=== PATIENT | male | born 1975 | race African-American/Black ===

== ENCOUNTER 2018-11-27 19:09 | Inpatient (IN) ==
[2018-11-27] MEDS ORDERED: ONDANSETRON 4 MG/2 ML VIAL IV ONE (19:51)
[2018-11-27] MEDS ORDERED: MORPHINE 4 MG/1 ML VIAL IV ONE (19:51)
[2018-11-27] MEDS ORDERED: LABETALOL 20 MG/4 ML SYRINGE IV STA ×3 (19:52→22:47)
[2018-11-27 19:57] LABS: Basophils % 0.2 % (0.0-0.8); Eosinophils # 0.2 10*3/uL (0.0-0.87); Eosinophils % 2.4 % (0.00-10.9); Hematocrit 47.8 VOL% (42.0-52.0); Hemoglobin 14.9 GM/DL (14.0-18.0); Immature Granulocytes % 0.4 %; Immature Granulocytes Absolute 0.04 #; Lymphocytes # 2.1 10*3/uL (1.4-4.0); Lymphocytes % 21.1 % (21.2-54.2); Mean Corpuscular HGB Conc 31.2 GM/DL (32-36); Mean Corpuscular Volume 89.5 FL (87-102); Mean Platelet Volume 10.6 FL (9.6-12.0); Monocytes % 4.7 % (1.7-12.7); Neutrophils % 71.2 % (38.7-73.9); Platelet Count 302 T/CUMM (130-400); Red Blood Count 5.34 MC/CUMM (3.8-5.5); Red Cell Distribution Width 14.7 % (9.3-17.3); White Blood Count 9.9 T/CUMM (4-12)
[2018-11-27] MEDS ORDERED: LABETALOL 100 MG/20 ML VIAL IV ONE (20:04)
[2018-11-27 20:16] LABS: PT Patient Result 10.4 SECS
[2018-11-27 20:21] LABS: Albumin 3.8 G/DL (3.4-5.0); Bilirubin,Total 0.5 MG/DL (0.2-1.0); Calcium 8.6 MG/DL (8.5-10.1); Osmolality,Calculated 276.4 MOS/KG (273-304); Total Protein 7.6 G/DL (6.4-8.3)
[2018-11-27 21:04] LABS: Apearance,Urine CLEAR (Clear); Bilirubin,Urine Negative (Negative); Blood, Urine Small mg/dL (Negative); Glucose,Urine (UA) Negative (Negative); Ketones,Urine Negative (Negative); Nitrite,Urine Negative (Negative); Protein,Urine 30 MG/DL; RBC,Urine 4 /HPF (0-4); Urine Color Yellow (Yellow); Urine Specific Gravity 1.012 (1.001-1.035); Urine Urobilinogen < 2.0 EU/DL (0.2-1.0); WBC,Urine <1 /HPF (0-6)
[2018-11-27] MEDS ORDERED: ceFAZolin 2,000 MG in PREMIX 1 EACH IV ONE (22:38)
[2018-11-27] MEDS ORDERED: LIDOCAINE 1% 20 ML VIAL ONE (22:38)
[2018-11-27] MEDS ORDERED: BUPIVACAINE MPF 0.25% /EPI 30 ML VIAL ONE (22:38)
[2018-11-27] MEDS ORDERED: HYDROmorphone 2 MG/1 ML VIAL IV PRN (23:04)
[2018-11-27] MEDS ORDERED: ONDANSETRON 4 MG/2 ML VIAL IV PRN (23:04)
[2018-11-27] MEDS ORDERED: MEPERIDINE 25 MG/1 ML VIAL IV PRN (23:04)
[2018-11-27] MEDS ORDERED: PROMETHAZINE INJ 25 MG in SODIUM CHLORIDE 0.9% 50 ML IV PRN (23:04)
[2018-11-27] MEDS ORDERED: ceFAZolin 1,000 MG VIAL ONE (23:07)
[2018-11-28] MEDS ORDERED: SUGAMMADEX 200 MG/2 ML VIAL IV ONE (00:45)
[2018-11-28] MEDS ORDERED: ONDANSETRON 4 MG/2 ML VIAL IV PRN (00:48)
[2018-11-28] MEDS ORDERED: MORPHINE 4 MG/1 ML VIAL IV PRN (00:48)
[2018-11-28] MEDS ORDERED: ALBUTEROL/IPRATROPIUM 3 ML NEB RESP TX ONE (00:58)
[2018-11-28] MEDS ORDERED: hydrALAZINE 20 MG/1 ML VIAL IV ONE (01:15)
[2018-11-28] MEDS ORDERED: MIDAZOLAM 2 MG/2 ML VIAL ONE (01:19)
[2018-11-28] MEDS ORDERED: SEVOFLURANE 1 UNIT/15 MINUTE INH ONE (01:19)
[2018-11-28] MEDS ORDERED: PROPOFOL 200 MG/20 ML VIAL IV ONE (01:19)
[2018-11-28] MEDS ORDERED: SUCCINYLCHOLINE 200 MG/10 ML VIAL ONE (01:20)
[2018-11-28] MEDS ORDERED: ROCURONIUM 100 MG/10 ML VIAL IV ONE (01:20)
[2018-11-28] MEDS ORDERED: PHENYLEPHRINE 1 MG/10 ML SYRINGE IV ONE (01:20)
[2018-11-28] MEDS ORDERED: LACTATED RINGERS 2,000 ML IV ONE (01:20)
[2018-11-28] MEDS ORDERED: fentaNYL 100 MCG/2 ML VIAL ONE (01:20)
[2018-11-28] MEDS ORDERED: ACETAMINOPHEN 1,000 MG/100 ML VIAL IV ONE (01:20)
[2018-11-28] MEDS ORDERED: ONDANSETRON 4 MG/2 ML VIAL ONE (01:20)
[2018-11-28] MEDS ORDERED: hydrALAZINE 20 MG/1 ML VIAL ONE (01:22)
[2018-11-28 04:40] LABS: Basophils % 0.1 % (0.0-0.8); Eosinophils # 0.1 10*3/uL (0.0-0.87); Eosinophils % 0.3 % (0.00-10.9); Hematocrit 44.3 VOL% (42.0-52.0); Hemoglobin 14.1 GM/DL (14.0-18.0); Immature Granulocytes % 0.4 %; Immature Granulocytes Absolute 0.07 #; Lymphocytes # 1.2 10*3/uL (1.4-4.0); Lymphocytes % 7.3 % (21.2-54.2); Mean Corpuscular HGB Conc 31.8 GM/DL (32-36); Mean Corpuscular Volume 90.8 FL (87-102); Mean Platelet Volume 11.1 FL (9.6-12.0); Neutrophils % 86.9 % (38.7-73.9); Platelet Count 297 T/CUMM (130-400); Red Blood Count 4.88 MC/CUMM (3.8-5.5); Red Cell Distribution Width 15.1 % (9.3-17.3); White Blood Count 16.7 T/CUMM (4-12)
[2018-11-28] MEDS: ceFAZolin 2,000 MG in PREMIX 1 EACH IV SCH ×2 (09:06→16:16)
[2018-11-28] MEDS ORDERED: METOPROLOL TARTRATE 5 MG/5 ML VIAL IV PRN (10:39)
[2018-11-28 11:21] LABS: Osmolality,Calculated 279.3 MOS/KG (273-304)
[2018-11-28] MEDS: amLODIPine 10 MG TABLET PO SCH (11:50)
[2018-11-28] MEDS: METOPROLOL TARTRATE 50 MG TABLET PO SCH (21:20)
[2018-11-29 07:35] VITALS: BP 178/101
[2018-11-29] MEDS ORDERED: hydroCHLOROthiazide 25 MG TABLET PO SCH (09:00)
[2018-11-29] MEDS ORDERED: LISINOPRIL 20 MG TABLET PO SCH (09:00)
[2018-11-29] MEDS: amLODIPine 10 MG TABLET PO SCH (09:05)
[2018-11-29] MEDS: METOPROLOL TARTRATE 50 MG TABLET PO SCH (09:05)
== END 2018-11-29 10:13 | disposition home or self-care (01) | DRG 351 ==
LOC: N.ED 19:09 → N.3E 22:48
PROVIDERS: ADMIT Surgery; ATTEND Surgery